=== PATIENT | female | born 1995 | race African-American/Black ===

== ENCOUNTER → 2016-08-22 | Outpatient (CLI) | payer BC ==
--- NOTE | 2016-08-22 13:44 | REP ---
PELVIC ULTRASOUND: Real-time sonographic evaluation of the pelvis performed utilizing transabdominal and endovaginal technique. Bladder measures 13.3 x 7.4 x 9.3 cm. Uterus measures 7.0 x 3.1 x 4.5 cm. Endometrial thickness is 4 mm with no endometrial fluid collection. Ovaries are normal in size and echotexture, right ovary measuring 2.5 x 1.4 x 1.8 cm and left ovary 2.6 x 1.4 x 2.1 cm. There is no adnexal mass or free fluid. Blood flow is seen in each ovary with duplex Doppler evaluation, with no torsion, RI right ovary 0.45 and left ovary 0.42. IMPRESSION: Essentially negative pelvic ultrasound. Signed by Juancho Locke MD 08/22/2016 05:24 P
[2016-08-22 14:12] LABS: FREE T4 1.14 NG/DL (0.76-1.46)
== END ==
LOC: M RAD 12:02
PROVIDERS: ATTEND Nurse Practitioner Women's Health
DX: N92.6 Irregular menstruation, unspecified (principal); R10.2 Pelvic and perineal pain

== ENCOUNTER → 2016-10-05 | Outpatient (CLI) | payer BC ==
[2016-10-05 10:56] LABS: BASO % 0.4 % (0.0-1.0); EOS # 0.1 K/mm3 (0.0-0.50); EOS % 1.6 % (0.0-3.0); LARGE UNSTAINED CELL # 0.1 K/mm3 (0.0-0.4); LARGE UNSTAINED CELL % 1.4 % (0.0-4.0); LYMPH # 1.8 K/mm3 (1.5-6.5); LYMPH % 26.6 % (24.0-44.0); MEAN CORPUSCULAR HEMOGLOBIN 30.8 pg (27.0-33.0); MEAN CORPUSCULAR HGB CONC 33.7 g/dl (32.0-36.5); MEAN CORPUSCULAR VOLUME 91.4 fl (80.0-96.0); MONO # 0.3 K/mm3 (0.0-0.8); MONO % 4.9 % (0.0-5.0); NEUTROPHILS # 4.4 K/mm3 (1.8-7.7); NEUTROPHILS % 65.1 % (36.0-66.0); PLATELET COUNT, AUTOMATED 344 k/mm3 (150-450); RED CELL DISTRIBUTION WIDTH 12.4 % (11.5-14.5); WHITE BLOOD COUNT 6.7 K/mm3 (4.0-10.0)
[2016-10-05 11:17] LABS: ERYTHROCYTE SEDIMENTATION RATE 9 mm/hr (0-20)
[2016-10-05 11:38] LABS: ALBUMIN 3.5 GM/DL (3.2-5.2); ALBUMIN/GLOBULIN RATIO 0.88 (1.00-1.93); ALKALINE PHOSPHATASE 66 U/L (45-117); ALT/SGPT 21 U/L (12-78); ANION GAP 12 MEQ/L (8-16); AST/SGOT 14 U/L (15-37); BILIRUBIN,TOTAL 0.4 MG/DL (0.2-1.0); BLOOD UREA NITROGEN 9 MG/DL (7-18); CALCIUM LEVEL 8.9 MG/DL (8.5-10.1); CARBON DIOXIDE LEVEL 22 MEQ/L (21-32); CHLORIDE LEVEL 107 MEQ/L (98-107); CREATININE FOR GFR 0.85 MG/DL (0.55-1.02); GLOMERULAR FILTRATION RATE > 60.0 (>60); GLUCOSE, FASTING 89 MG/DL (70-105); POTASSIUM SERUM 4.2 MEQ/L (3.5-5.1); SODIUM LEVEL 141 MEQ/L (136-145); TOTAL PROTEIN 7.5 GM/DL (6.4-8.2)
== END ==
LOC: M LAB 10-03 14:47
PROVIDERS: ATTEND Psychiatry & Neurology Neurology
DX: R51 Headache (principal)

== ENCOUNTER → 2016-10-05 | Outpatient (CLI) | payer BC ==
[2016-10-05 11:22] LABS: CONTROL LINE HCG INT CTR LINE PRESENT
[2016-10-05 11:29] LABS: ANION GAP 12 MEQ/L (8-16); BLOOD UREA NITROGEN 9 MG/DL (7-18); CALCIUM LEVEL 9.1 MG/DL (8.5-10.1); CARBON DIOXIDE LEVEL 23 MEQ/L (21-32); CHLORIDE LEVEL 108 MEQ/L (98-107); CREATININE FOR GFR 0.83 MG/DL (0.55-1.02); GLOMERULAR FILTRATION RATE > 60.0 (>60); GLUCOSE, FASTING 92 MG/DL (70-105); POTASSIUM SERUM 4.2 MEQ/L (3.5-5.1); SODIUM LEVEL 143 MEQ/L (136-145)
[2016-10-06 12:06] LABS: CORTISOL AM 15.2 UG/DL (4.3-22.4)
[2016-10-06 12:07] LABS: FOLLICLE STIMULATING HORMONE 3.9 mIU/mL; LUTEINIZING HORMONE 7.9 mIU/mL
[2016-10-10 08:07] LABS: PERCENT MACROPROLACTIN 0 % (.); PROLACTIN MONOMERIC 12 ng/mL (.); PROLACTIN TOTAL 12 ng/mL (.)
[2016-10-11 00:06] LABS: FREE CORTISOL 24HR URINE 23 ug/24 hr (0-50); FREE CORTISOL URINE 20 ug/L (Undefined)
== END ==
LOC: M LAB 10-03 14:43
PROVIDERS: ATTEND Nurse Practitioner Family
DX: E22.1 Hyperprolactinemia (principal)

== ENCOUNTER → 2017-11-07 | Outpatient (REF) | payer BC | LOC: M WUC 11:31 | DX: J00 Acute nasopharyngitis [common cold] (principal) ==

== ENCOUNTER → 2018-03-17 | Outpatient (REF) | payer BC | LOC: M LAB REF 16:00 | PROVIDERS: ATTEND Physician Assistant | DX: A08.4 Viral intestinal infection, unspecified (principal) ==

== ENCOUNTER → 2018-07-04 | Outpatient (CLI) | payer BC ==
[2018-07-04 18:16] LABS: BASO % 0.6 % (0.0-1.0); BLOOD UREA NITROGEN 11 MG/DL (7-18); CARBON DIOXIDE LEVEL 28 MEQ/L (21-32); CHLORIDE LEVEL 104 MEQ/L (98-107); CREATININE FOR GFR 0.96 MG/DL (0.55-1.30); EOS # 0.1 10^3/uL (0.0-0.50); EOS % 1.2 % (0.0-3.0); GLOMERULAR FILTRATION RATE > 60.0 (>60); GLUCOSE, FASTING 75 MG/DL (70-100); HEMATOCRIT 46.8 % (36.0-47.0); HEMOGLOBIN 14.9 g/dl (12.0-15.5); LYMPH % 30.1 % (24.0-44.0); MEAN CORPUSCULAR HEMOGLOBIN 30.3 pg (27.0-33.0); MEAN CORPUSCULAR HGB CONC 31.8 g/dl (32.0-36.5); MEAN CORPUSCULAR VOLUME 95.3 fl (80.0-96.0); MONO # 0.5 10^3/uL (0.0-0.8); MONO % 6.8 % (0.0-5.0); PLATELET COUNT, AUTOMATED 254 10^3/uL (150-450); POTASSIUM SERUM 4.2 MEQ/L (3.5-5.1); RED BLOOD COUNT 4.91 10^6/uL (4.00-5.40); SODIUM LEVEL 140 MEQ/L (136-145); WHITE BLOOD COUNT 6.6 10^3/uL (4.0-10.0)
[2018-07-04 18:17] LABS: CALCIUM LEVEL 8.7 MG/DL (8.5-10.1)
[2018-07-08 00:10] LABS: EBV VIRAL CAPSID AG IgG >600.0 U/mL (0.0-17.9); EBV VIRAL CAPSID AG IgM <36.0 U/mL (0.0-35.9)
== END ==
LOC: M LABDRWAD 08:50
PROVIDERS: ATTEND Physician Assistant
DX: R53.83 Other fatigue (principal)

== ENCOUNTER 2018-07-20 22:57 | Emergency (ER) | payer BC ==
[~2018-07-20] VITALS: Ht 162.6 cm; Wt 100.0 kg
[2018-07-20 23:22] LABS: URINE PREG TEST NEGATIVE (NEGATIVE)
[2018-07-20 23:29] LABS: APPEARANCE, URINE CLOUDY (CLEAR); BACTERIA, URINE AUTO 1+ (NEGATIVE); BILIRUBIN, URINE AUTO NEGATIVE (NEGATIVE); BLOOD, URINE BLOOD 3+ (NEGATIVE); COLOR, URINE AMBER (YELLOW); GLUCOSE, URINE (UA) AUTO NEGATIVE (NEGATIVE); KETONE, URINE AUTO NEGATIVE (NEGATIVE); LEUKOCYTE ESTERASE, URINE AUTO NEGATIVE (NEGATIVE); MUCUS, URINE LARGE (NEGATIVE); NITRITE, URINE AUTO NEGATIVE (NEGATIVE); PROTEIN, URINE AUTO 2+ mg/dL (NEGATIVE); RBC, URINE AUTO TNTC /HPF (0-3); SPECIFIC GRAVITY URINE AUTO 1.027 (1.002-1.035); SQUAMOUS EPITHELIAL CELL UR AU 11 /HPF (0-6); UROBILINOGEN, URINE AUTO 0.2 mg/dL (0.0-2.0); WBC, URINE AUTO 8 /HPF (0-3)
[2018-07-20] MEDS ORDERED: KETOROLAC 30 MG/ML VIAL (J1885) IV ONE (23:30)
--- NOTE | 2018-07-21 00:35 | REPVR ---
EXAM: CT Abdomen and Pelvis Without Contrast EXAM DATE/TIME: 07/20/2018 11:58 PM CLINICAL HISTORY: 23 years old, female; Abdominal pain; Flank; Right; Additional info: Right renal colic TECHNIQUE: Imaging protocol: Axial computed tomography images of the abdomen and pelvis without contrast. Coronal and sagittal reformatted images were created and reviewed. Radiation optimization: All CT scans at this facility use at least one of these dose optimization techniques: automated exposure control; mA and/or kV adjustment per patient size (includes targeted exams where dose is matched to clinical indication); or iterative reconstruction. COMPARISON: US PELVIC NON-OB COMPLETE 08/22/2016 12:23 PM FINDINGS: Lungs: The imaged lung bases are clear. Heart: No cardiomegaly or pericardial effusion is noted. ABDOMEN: Liver: The liver measures less than 40 Hounsfield units and the attenuation of the liver measures more than 10 Hounsfield units lower compared to the attenuation of the spleen, which is compatible with fatty liver infiltration. No liver lesion is seen. The contour of the liver is smooth. No hepatomegaly is noted. Gallbladder and bile ducts: No calcified gallstones are seen. No gallbladder wall thickening, pericholecystic fluid, or pericholecystic inflammatory changes are identified. No dilation of the intrahepatic or extrahepatic bile ducts is noted. Pancreas: Unremarkable. No ductal dilation. Spleen: Unremarkable. No splenomegaly. Adrenals: Normal. No mass. Kidneys and ureters: There is mild right hydronephrosis. No stones are noted in the kidneys or ureters. No renal lesion is identified. Stomach and bowel: There is no evidence for a bowel obstruction, diverticulosis, diverticulitis, colitis, pneumatosis intestinalis, intussusception, volvulus, or perforated viscus. Appendix: Normal. No evidence for appendicitis. PELVIS: Bladder: There is a 3 mm calculus in the posterior aspect of the urinary bladder. The partially distended urinary bladder is otherwise unremarkable. Reproductive: Unremarkable as visualized. ABDOMEN and PELVIS: Intraperitoneal space: Normal. No free air. No fluid collection. Bones/joints: The imaged bony structures are intact. There is no suspicious osteolytic or osteoblastic lesion. Soft tissues: Unremarkable. Vasculature: No abdominal aortic aneurysm. Lymph nodes: Normal. No enlarged lymph nodes. IMPRESSION: 1. 3 mm calculus in the urinary bladder and mild right hydronephrosis. No stones in the kidneys or ureters. 2. Fatty liver. Electronically signed by: Dmitry Hahn On 07/21/2018 00:35:45 AM
[2018-07-21 01:45] VITALS: BP 124/60
== END 2018-07-21 01:46 | disposition home or self-care (01) ==
LOC: M ED 22:57
DX: N23 Unspecified renal colic (principal); N21.0 Calculus in bladder; N13.39 Other hydronephrosis; K76.0 Fatty (change of) liver, not elsewhere classified; E66.9 Obesity, unspecified; N92.6 Irregular menstruation, unspecified; Z87.440 Personal history of urinary (tract) infections
CPT/HCPCS: 74176; 81001; 84703; 96374; 99284; J1885

== ENCOUNTER → 2019-03-10 | Outpatient (CLI) | payer BC ==
--- NOTE | 2019-03-11 03:09 | REP ---
Clinical: Irregular menstrual cycles. Technique: Transabdominal pelvic ultrasound with color Doppler evaluation of the ovaries. Findings: Bladder is normal and currently measures 7.1 x 5.8 x 3.7 cm. Normal anteverted uterus measures 6.0 x 2.3 x 3.6 cm. Endometrial complex measures 4.1 mm thickness. No uterine or endometrial abnormalities appreciated. The bilateral ovaries are normal in appearance and vascularity without torsion. Right ovary measures 2.2 x 2.1 x 2.2 cm (RI 0.61). Left ovary measures 2.7 x 2.1 x 2.0 cm (RI 0.52). No pelvic fluid or adnexal mass lesion. Impression: Normal pelvic ultrasound. Electronically Signed by Kaden Khan MD 03/11/2019 03:01 A
== END ==
LOC: M RAD 17:50
PROVIDERS: ATTEND Obstetrics & Gynecology
DX: N92.6 Irregular menstruation, unspecified (principal)

== ENCOUNTER → 2019-04-05 | Outpatient (REF) | payer BC | LOC: M LAB REF 12:49 | PROVIDERS: ATTEND Physician Assistant | DX: R50.9 Fever, unspecified (principal) ==